=== PATIENT | male | born 1970 | race Caucasian/White ===

== ENCOUNTER 2020-03-11 16:08 | Inpatient (IN) | payer OTHER ==
[~2020-03-11] VITALS: Ht 180.3 cm; Wt 120.2 kg
--- NOTE | 2020-03-11 16:18 | NUR ---
BIBA RA 102 From Home "Chest pain/Started sweating/did NOT feel good" Given 162 AsA and 2sprays Nitro now pain 07/10. Patient a/ox4, breathing even and unlabored, no sob noted, attached to the monitoring engineer.
[2020-03-11] MEDS ORDERED: IV NS 0.9% 500 ML BAG IV ONE (16:30)
[2020-03-11] MEDS ORDERED: NITROGLYCERIN PACKET 1 GM PACKET TOP ONE (16:30)
[2020-03-11] MEDS ORDERED: NITROGLYCERIN PACKET 1 GM PACKET ONE (16:38)
[2020-03-11 16:39] LABS: BASOPHILS # (AUTO) 0.1 /CMM (0.0-0.2); BASOPHILS % (AUTO) 0.6 % (0.0-2.0); EOSINOPHILS % (AUTO) 2.4 % (0.0-6.0); HEMATOCRIT 50 % (39-51); HEMOGLOBIN 17.1 g/dL (13.5-17.5); LYMPHOCYTES % (AUTO) 27.9 % (20.0-44.0); MEAN CORPUSCULAR HGB CONC 34 g/dl (31.0-36.0); MEAN CORPUSCULAR VOLUME 91 fL (80-96); MONOCYTES # (AUTO) 0.8 /CMM (0.1-1.30); MONOCYTES % (AUTO) 7.1 % (2.0-12.0); NEUTROPHILS # (AUTO) 6.6 /CMM (1.8-8.9); PLATELET COUNT (AUTO) 245 /CMM (150-450); RED BLOOD CELL COUNT(AUTO) 5.55 MIL/uL (4.5-6.0); WHITE BLOOD COUNT (AUTO) 10.6 K/uL (4.3-11.0)
[2020-03-11 16:55] LABS: CALCIUM, SERUM 9.1 mg/dL (8.5-10.1); POTASSIUM 3.6 mmol/L (3.5-5.1)
--- NOTE | 2020-03-11 17:58 | NUR ---
NORM ROBERT SPOKE WITH AUTOMOTIVE BRAKE TECHNICIAN AND TOLD THAT WE WILL GIVE THEM 30 MINUTES TO TX
--- NOTE | 2020-03-11 18:08 | NUR ---
CALL BACK FROM CARE COORDINATION MANAGER PENELOPE WITH SELENA IRVIN TO TALK TO DR RODRÍGUEZ
--- NOTE | 2020-03-11 18:16 | NUR ---
REPORT GIVEN TO GUS ROBERT.
--- NOTE | 2020-03-11 18:20 | NUR ---
DR. LEWIS ACCEPTED.
[2020-03-11] MEDS ORDERED: IV NS 0.9% 250 ML BAG IV ONE (18:30)
[2020-03-11] MEDS ORDERED: IOHEXOL-350 100 ML VIAL IV ONE (18:44)
[2020-03-11] MEDS ORDERED: IV NS 0.9% 250 ML IV ONE (18:44)
[2020-03-11] MEDS ORDERED: CT SWABBABLE VALVE TRANS SET 1 EA INFUS.SET MC ONE (18:45)
--- NOTE | 2020-03-11 18:47 | NUR ---
[address] [facility]
--- NOTE | 2020-03-11 18:57 | NUR ---
TAKEN TO RADIOLOGY FOR CT.
--- NOTE | 2020-03-11 19:12 | NUR ---
PATIENT A/OX4, BREATHING EVEN AND UNLABORED, TRANSFERRED TO ROOM 202 VIA ACLS PROTOCOL. PATIENT IN STABLE CONDITION, ENDORSED TO DAMIÁN ROBERT.
[2020-03-11] MEDS ORDERED: ZOLPIDEM TARTRATE 5 MG TABLET PO PRN (19:30)
[2020-03-11] MEDS ORDERED: ACETAMINOPHEN 650 MG/20.3 ML UDC NG PRN (19:30)
[2020-03-11] MEDS ORDERED: HYDROCODONE/APAP 5/325MG TABLET PO PRN (19:30)
[2020-03-11] MEDS: PANTOPRAZOLE 40 MG TABLET.DR PO SCH (20:16)
--- NOTE | 2020-03-11 20:33 | NUR ---
TELE SECOND FLOOR/RN RECEIVED PATIENT AT AROUND 1900 FROM E. VIA [facility], PATIENT WAS AWAKE, ALERT, ORIENTED, COMFORTABLE, NO C/O PAIN, NO SIGNS OF DISTRESS NOTED, AFEBRILE, ADMISSION DONE PER PROTOCOL, REFUSED SKIN ASSESSMENT, PATIENT STATED HE HAS NO SKIN PROBLEMS, PLAN OF CARE DISCUSSED WITH THE PATIENT, VERBALIZED UNDERSTANDING AND IS IN AGREEMENT TO THE PLAN OF CARE, TAUGHT THE USE OF CALL LIGHT AND PLACED UT AT BEDSIDE WITHIN REACH, WILL MONITOR.
[2020-03-11 21:10] VITALS: BP 112/65
--- NOTE | 2020-03-11 22:21 | NUR ---
MS/TELE 2/RN PATIENT REPORTED TO HAVE VOMITED ONE TIME, OFFERED NAUSEA MEDICATION BUT PATIENT REFUSED. WILL CONTINUE TO MONITOR.
[2020-03-12] VITALS (7 sets, daily range): BP systolic 120–132; BP diastolic 72–82
--- NOTE | 2020-03-12 04:31 | NUR ---
MS2/TELE PATIENT C/O PAIN IN HIS ESOPHAGUS AND STATED THAT HE COULD NOT SLEEP WELL. MADE A CALL TO , , LEFT MESSAGE.
--- NOTE | 2020-03-12 04:43 | NUR ---
MS2/RN DR. LEWIS CALLED BACK WITH ORDERS RECEIVED.
[2020-03-12] MEDS ORDERED: MAG HYDROX/AL HYDROX/SIMETH 30 ML UDC PO PRN (05:00)
[2020-03-12] MEDS ORDERED: ONDANSETRON HCL/PF 4 MG/2 ML VIAL IV PRN (05:00)
--- NOTE | 2020-03-12 05:20 | NUR ---
MS2/RN PATIENT REPORTS VOMITING YELLOWISH COLOR VOMITUS, ZOFRAN 4 MG IVP WAS GIVEN ORDERED, WILL MONITOR.
--- NOTE | 2020-03-12 06:06 | NUR ---
MS2/RN PATIENT IS AWAKE AT THIS TIME, REPORTS NO NAUSEA/VOMITING, NO SIGNS OF DISTRESS NOTED, ON AND OFF SLEEP NOTED THE WHOLE SHIFT, ALL NEEDS ATTENDED AT THIS TIME, WILL CONTINUE TO MONITOR.
[2020-03-12 06:54] LABS: BASOPHILS % (AUTO) 0.2 % (0.0-2.0); HEMATOCRIT 49 % (39-51); HEMOGLOBIN 16.1 g/dL (13.5-17.5); LYMPHOCYTES # (AUTO) 1.5 /CMM (0.8-4.8); LYMPHOCYTES % (AUTO) 9.9 % (20.0-44.0); MEAN CORPUSCULAR HGB CONC 33 g/dl (31.0-36.0); MEAN CORPUSCULAR VOLUME 92 fL (80-96); MONOCYTES # (AUTO) 0.8 /CMM (0.1-1.30); NEUTROPHILS # (AUTO) 12.8 /CMM (1.8-8.9); NEUTROPHILS % (AUTO) 84.9 % (43.0-81.0); PLATELET COUNT (AUTO) 222 /CMM (150-450); RED BLOOD CELL COUNT(AUTO) 5.32 MIL/uL (4.5-6.0); WHITE BLOOD COUNT (AUTO) 15.1 K/uL (4.3-11.0)
--- NOTE | 2020-03-12 07:00 | NUR ---
BRIDGE REPAIR CREW PERSON OPENING NOTE RECEIVED PT AWAKE IN BED AT THIS TIME. AOX4. ABLE TO MAKE NEEDS KNOWN. PT ON RA AND SATURATING AT 97%., RESPIRATIONS ARE EVEN AND UNLABORED. NO SOB NOTED. NO C/O PAIN AT THIS TIME. NO S/S OF ANY ACUTE DISTRESS NOTED. LAC G#18 , INTACT, PATENT, FLUSHING WELL. FALL AND SAFETY PRECAUTION IN PLACE AND MAINTAINED AT ALL TIMES. BED IN LOWEST LOCKED POSITION, HOB ELEVATED, RAILS UP X 2, CALL LIGHT WITHIN REACH. WILL CONTINUE TO MONITOR
[2020-03-12 07:50] LABS: ALANINE AMINOTRANSFERASE 54 U/L (12-78); ALBUMIN 3.7 g/dL (3.4-5.0); ALKALINE PHOSPHATASE 62 U/L (46-116); ASPARTATE AMINOTRANSFERASE 139 U/L (15-37); BILIRUBIN,TOTAL 0.4 mg/dL (0.2-1.0); CALCIUM, SERUM 8.7 mg/dL (8.5-10.1); CARBON DIOXIDE 25 mmol/L (21-32); CHLORIDE 104 mmol/L (98-107); CREATININE 0.9 mg/dL (0.6-1.3); GLUCOSE 126 mg/dL (74-106); POTASSIUM 4.4 mmol/L (3.5-5.1); SODIUM SERUM 141 mmol/L (136-145); TOTAL PROTEIN, SERUM 7.5 g/dL (6.4-8.2); UREA NITROGEN, BLOOD 6 mg/dL (7-18)
[2020-03-12 08:09] LABS: CHOLESTEROL 179 mg/dL (<200); FERRITIN 217 ng/mL (8-388); HDL CHOLESTEROL 45 mg/dL (40-60); LDL 128 mg/dL (0-99); THYROID STIMULATING HORMONE 0.805 uIU/mL (0.358-3.74); TRIGLYCERIDES 69 mg/dL (30-150)
--- NOTE | 2020-03-12 08:10 | NUR ---
PT'S TROPONIN 8.298 LAB REPORT CALLED IN TO [facility]ILY AT THIS TIME BY ALEE METAL STORAGE WORKER. REPORT READ BACK. DR LEA AND DR LEWIS MADE AWARE. RECEIVED ORDERS FROM DR LEA FOR STAT ECHOCARDIOGRAM AND DECADRON 6MG IV DAILY STAT. ORDERS CARRIED OUT. WILL CONTINUE TO MONITOR
[2020-03-12] MEDS: PANTOPRAZOLE 40 MG TABLET.DR PO SCH (08:13)
[2020-03-12] MEDS: ASPIRIN 81 MG TAB.CHEW PO SCH (09:05)
[2020-03-12] MEDS: ATORVASTATIN 10 MG TABLET PO SCH (09:05)
[2020-03-12] MEDS: CARVEDILOL 6.25 MG TABLET PO SCH ×2 (09:06→21:36)
[2020-03-12] MEDS: ENOXAPARIN SODIUM 100 MG/ML DISP.SYRIN SQ SCH ×2 (09:07→21:37)
[2020-03-12 09:16] LABS: C-REACTIVE PROTEIN < 0.2 mg/dL (0.0-0.9)
[2020-03-12] MEDS ORDERED: DEXAMETHASONE SOD PHOSPHATE 10 MG/ML VIAL IV STA (09:39)
--- NOTE | 2020-03-12 10:00 | NUR ---
PT C/O OF VOMITING YELLOW LIQUID EMESIS. RECEIVED ORDERS FROM DR LEA FOR DECADRON 6MG IV DAILY STAT. ORDERS READ BACK AND CARRIED OUT. WILL CONTINUE TO MONITOR
--- NOTE | 2020-03-12 13:01 | NUR ---
PT'S TROPONIN 8.298. DR LEWIS MADE AWARE. PER DR LEWIS REQUEST, DR HOOVER WAS MADE AWARE. AWAITING ORDERS, WILL CONTINUE TO MONITOR.
--- NOTE | 2020-03-12 18:57 | NUR ---
PT MONITOR READING SR 83 WITH BBB. PT ASSESSED, VS WNL, SPO2 ON RA AT 95% AND 100% ON O2 2LPM VIA NC. PT CHEST SHAVED, LEADS REPLACED, TELEPHONE EXCHANGE TO PLACED TO DR LEWIS TO MAKE AWARE, VIA XI AT DR LEWIS'S OFFICE, AWAITING ORDERS. WILL CONTINUE TO MONITOR
--- NOTE | 2020-03-12 19:11 | NUR ---
PT MONITOR READING SR 83 WITH BBB. PT ASSESSED, VS WNL, SPO2 ON RA AT 95% AND 100% ON O2 2LPM VIA NC. STAT EKG ORDERED, DR LEA MADE AWARE AND PER DR LEA REQUEST, DR HOOVER WAS MADE AWARE. NO NEW ORDERS AT THIS TIME. WILL CONTINUE TO MONITOR AND ENDORSE TO SERVICE DESK SPECIALIST NURSE FOR ALEJANDRO
--- NOTE | 2020-03-12 19:25 | NUR ---
BATCH FREEZER CLOSING NOTES PT AWAKE IN BED AT THIS TIME. PT REMAINED STABLE THROUGHOUT SHIFT. PT KEPT CLEAN AND DRY. ALL CARE, NEEDS, MEDICATION AND TREATMENT ADMINISTERED ANTICIPATED PER ORDER. ASPIRATION AND SAFETY PRECAUTION IN PLACE AND MAINTAINED AT ALL TIMES. BED IN LOWEST LOCKED POSITION, HOB ELEVATED, RAILS UP X 2, CALL LIGHT WITHIN REACH. WILL ENDORSE TO PARTNER CCO NURSE FOR ALEJANDRO
--- NOTE | 2020-03-12 19:30 | NUR ---
MEN'S LOCKER ROOM ATTENDANT RECEIVE PT IN BED A/O X 4 SR 62 WITH BB. AWAITING EKG. CARDIAC MONITORING, NOT IN DISTRESS, SAFETY MEASURES AT ALL TIMES. WILL CONT TO MONITOR
--- NOTE | 2020-03-12 23:20 | NUR ---
LAB CALLED FOR CRITICAL RESULT TROPONIN 17.597 PAGED Jacinto SECURITIES SALES ASSOCIATE
--- NOTE | 2020-03-12 23:20 | NUR ---
PAGED HOSPITALIST FOR CRITICAL RESULT TROPONIN
--- NOTE | 2020-03-12 23:23 | NUR ---
PT SR 70'S HR WITH BBB
--- NOTE | 2020-03-12 23:25 | NUR ---
SPOKE TO DR. DECKER AWARE RECENT TROPONIN 17.597 NO NEW ORDERS NOTED
--- NOTE | 2020-03-12 23:33 | NUR ---
PAGED AND SPOKE TO RN PACU DR. HOOVER RELAYED RECENT TROPONIN 17.[address] " OK NO NEW ORDERS" NOTED. PT STABLE AT THIS TIME NO COMPLAIN OF CHEST PAIN
[2020-03-13] VITALS (8 sets, daily range): BP systolic 108–131; BP diastolic 60–80
--- NOTE | 2020-03-13 06:05 | NUR ---
ANTHONY ROBERT PT SLEPT WELL, NO COMPLAIN OF CHEST PAIN. DENIES PAIN, PT MONITORED ACCORDINGLY, SR 72 HR WITH BBB ON CARDIAC MONITORING, MAINTAINS CONTACT, DROPLET ISOLATION. NEEDS ATTENDED AND ANTICIPATED, KEPT CLEAN, DRY AND COMFORTABLE. SAFETY MEASURES AT ALL TIMES. WILL ENDORSE Addendum: 03/13/20 at 0607 by KIRAN LAU RN PT TOLERATING ROOM AIR 96%
--- NOTE | 2020-03-13 08:00 | NUR ---
RN NOTES RECEIVED PATIENT IN THE BED TELE SR-92, , PATIENT A/O X4, REFUSED PAIN, V/S WNL, NO ACUTE RESPIRATORY DISTRESS. ADMINISTERED SCHEDULED MEDICATION. IV ACCESS ON LEFT AC INTACT. PATIENT AMBULATORY SELF CARE. CALL LIGHT WITHIN TO REACH. WILL CONTINUED MONITORING.
[2020-03-13 08:13] LABS: ALBUMIN 3.6 g/dL (3.4-5.0); BILIRUBIN,TOTAL 0.6 mg/dL (0.2-1.0); CALCIUM, SERUM 8.9 mg/dL (8.5-10.1); MAGNESIUM 2.2 mg/dL (1.8-2.4); PHOSPHORUS 3.1 mg/dL (2.5-4.9); POTASSIUM 3.8 mmol/L (3.5-5.1); TOTAL PROTEIN, SERUM 7.3 g/dL (6.4-8.2)
[2020-03-13 08:20] LABS: BASOPHILS % (AUTO) 0.1 % (0.0-2.0); EOSINOPHILS % (AUTO) 0.2 % (0.0-6.0); HEMATOCRIT 48 % (39-51); HEMOGLOBIN 15.9 g/dL (13.5-17.5); LYMPHOCYTES % (AUTO) 18.3 % (20.0-44.0); MEAN CORPUSCULAR HGB CONC 33 g/dl (31.0-36.0); MEAN CORPUSCULAR VOLUME 90 fL (80-96); MONOCYTES # (AUTO) 1.7 /CMM (0.1-1.30); NEUTROPHILS # (AUTO) 11.8 /CMM (1.8-8.9); NEUTROPHILS % (AUTO) 71.4 % (43.0-81.0); PLATELET COUNT (AUTO) 228 /CMM (150-450); RED BLOOD CELL COUNT(AUTO) 5.37 MIL/uL (4.5-6.0); WHITE BLOOD COUNT (AUTO) 16.5 K/uL (4.3-11.0)
[2020-03-13] MEDS: PANTOPRAZOLE 40 MG TABLET.DR PO SCH (09:34)
[2020-03-13] MEDS: ASPIRIN 81 MG TAB.CHEW PO SCH (09:34)
[2020-03-13] MEDS: DEXAMETHASONE SOD PHOSPHATE 10 MG/ML VIAL IV SCH (09:34)
[2020-03-13] MEDS: CARVEDILOL 6.25 MG TABLET PO SCH ×2 (09:35→21:26)
[2020-03-13] MEDS: ENOXAPARIN SODIUM 100 MG/ML DISP.SYRIN SQ SCH ×2 (09:35→21:17)
[2020-03-13] MEDS: ATORVASTATIN 10 MG TABLET PO SCH (09:36)
--- NOTE | 2020-03-13 10:06 | NUR ---
rn notes seen patient by hospitalist Dr So, new orders is labs for tomorrow, patient stable on room air, refused pain at this time, a/o x4, iv access on left ac area intact. patient resting, call light within to reach. will continued monitoring.
--- NOTE | 2020-03-13 12:14 | NUR ---
RN NOTES NOTIFIED TROPONIN LEVEL 19.241 TO THE FINISHER MERCHANT PRODUCTS Dr BARBOUR AND RESPOND WAS NO ORDERS, WILL CONTINUED MONITORING, PATIENT REFUSED PAIN, TELE MONITOR SHOWING SR. CONTINUED MONITORING.
[2020-03-13 12:20] LABS: HIV SCRN 4G wRFX Non Reactive (Non Reactive)
--- NOTE | 2020-03-13 18:15 | NUR ---
RN NOTES PATIENT STABLE NO ACUTE RESPIRATORY DISTRESS, V/S WNL, REFUSED PAIN. PATIENT SELF CARE. ENDORSED ONCOMING NURSE FOLLOW PLAN OF CARE.
--- NOTE | 2020-03-13 19:40 | NUR ---
RN NOTES RECEIVED PATIENT IN THE BED TELE SR-60s -70s WITH BBB, PATIENT ALERT ORIENTED X4, DENIES PAIN AND OR DISCOMFORT, NO SIGNS OF ACUTE RESPIRATORY OR CARDIAC DISTRESS. IV ACCESS ON LEFT AC INTACT AND PATIENT, AMBULATORY SELF CARE. CALL LIGHT WITHIN REACH. ALL NEEDS ANTICIPATED, WILL CONTINUE TO MONITOR ACCORDINGLY.
[2020-03-14] VITALS (7 sets, daily range): BP systolic 106–149; BP diastolic 60–83
--- NOTE | 2020-03-14 06:14 | NUR ---
RN NOTES ALL NEEDS ATTENDED AND MET, ABLE TO REST AND SLEPT AT INTERVALS, PATIENT IN THE BED AT THIS TIME, TELE SR-60s, PATIENT A/O X4, NO COMPLAINTS OF PAIN THROUGHOUT THE SHIFT, VITAL SIGNS WNL, NO ACUTE CARDIAC OR RESPIRATORY DISTRESS NOTED. ADMINISTERED SCHEDULED MEDICATION. IV ACCESS ON LEFT AC INTACT. PATIENT AMBULATORY SELF CARE. CALL LIGHT WITHIN TO REACH. WILL ENDORSE TO AM NURSE FOR CONTINUITY OF CARE.
[2020-03-14] MEDS: PANTOPRAZOLE 40 MG TABLET.DR PO SCH (07:12)
[2020-03-14 07:17] LABS: BASOPHILS # (AUTO) 0.1 /CMM (0.0-0.2); BASOPHILS % (AUTO) 0.5 % (0.0-2.0); EOSINOPHILS % (AUTO) 0.2 % (0.0-6.0); HEMATOCRIT 46 % (39-51); HEMOGLOBIN 15.3 g/dL (13.5-17.5); LYMPHOCYTES % (AUTO) 20.9 % (20.0-44.0); MEAN CORPUSCULAR HGB CONC 34 g/dl (31.0-36.0); MEAN CORPUSCULAR VOLUME 90 fL (80-96); MONOCYTES # (AUTO) 1.5 /CMM (0.1-1.30); MONOCYTES % (AUTO) 10.6 % (2.0-12.0); NEUTROPHILS # (AUTO) 9.7 /CMM (1.8-8.9); NEUTROPHILS % (AUTO) 67.8 % (43.0-81.0); PLATELET COUNT (AUTO) 203 /CMM (150-450); RED BLOOD CELL COUNT(AUTO) 5.09 MIL/uL (4.5-6.0); WHITE BLOOD COUNT (AUTO) 14.3 K/uL (4.3-11.0)
--- NOTE | 2020-03-14 07:20 | NUR ---
TOWNSHIP CLERK NOTES RECEIVED PATIENT IN BED, ASLEEP. AROUSABLE TO VERBAL AND TACTILE STIMULI. ALERT AND ORIENTED X4. HOB ELEVATED. ON O2 AT 2 L/MIN VIA NC CORRINE WELL. ON TELE MONITORING SR: 76 WITH BBB. PATIENT RESTING COMFORTABLY IN BED. DENIES ANY C/O LIGHTHEADEDNESS, ZAMBRANO, N&V NOR SOB. BED IN LOWEST POSITION ,LOCKED. BED SIDERAILS UP X2. CALL LIGHT WITHIN REACH.
[2020-03-14 08:34] LABS: ALBUMIN 3.3 g/dL (3.4-5.0); BILIRUBIN,TOTAL 0.4 mg/dL (0.2-1.0); CALCIUM, SERUM 8.5 mg/dL (8.5-10.1); CREATININE 0.8 mg/dL (0.6-1.3); MAGNESIUM 2.4 mg/dL (1.8-2.4); PHOSPHORUS 3.7 mg/dL (2.5-4.9); POTASSIUM 4.1 mmol/L (3.5-5.1); TOTAL PROTEIN, SERUM 7.1 g/dL (6.4-8.2)
--- NOTE | 2020-03-14 08:38 | NUR ---
TELE NOTES RECEIVED TROPONIN LEVEL OF 8.[address] HOOVER TRENDING DOWN WITH N.O. FOR DC LOVENOX AND DVT PPX.
[2020-03-14] MEDS: ASPIRIN 81 MG TAB.CHEW PO SCH (08:47)
[2020-03-14] MEDS: DEXAMETHASONE SOD PHOSPHATE 10 MG/ML VIAL IV SCH (08:48)
[2020-03-14] MEDS: ATORVASTATIN 10 MG TABLET PO SCH (08:48)
[2020-03-14] MEDS: CARVEDILOL 6.25 MG TABLET PO SCH ×2 (08:48→20:14)
[2020-03-14] MEDS ORDERED: ENOXAPARIN SODIUM 40 MG/0.4 ML DISP.SYRIN SQ SCH (09:46)
--- NOTE | 2020-03-14 09:56 | NUR ---
MACHINE WIPER NOTES PATIENT SEEN BY DR. LEWIS
[2020-03-14] MEDS ORDERED: IV NS 0.9% 250 ML IV ONE (10:29)
[2020-03-14] MEDS ORDERED: IOHEXOL-350 100 ML VIAL IV ONE (10:29)
[2020-03-14] MEDS ORDERED: NITROGLYCERIN 0.4 MG/TAB BOTTLE SL ONE (10:30)
--- NOTE | 2020-03-14 10:32 | NUR ---
CIRCUS SUPERVISOR NOTES PATIENT OFF UNIT, WENT TO [employer] CLINICAL PROGRAMMER. LEFT IN STABLE CONDITION.
[2020-03-14] MEDS ORDERED: NITROGLYCERIN 0.4 MG/TAB BOTTLE ONE (10:41)
[2020-03-14] MEDS ORDERED: METOPROLOL TARTRATE INJ 5 MG/5 ML AMPUL ONE (10:42)
[2020-03-14] MEDS: METOPROLOL TARTRATE INJ 5 MG/5 ML AMPUL IVP PRN ×3 (10:43→10:55)
--- NOTE | 2020-03-14 11:04 | NUR ---
RN NOTES: CTA completed,patient tolerated well. Transferred back to patient room.
--- NOTE | 2020-03-14 11:26 | NUR ---
CCO & PRESIDENT NOTES PATIENT RETURNED TO UNIT, ON TELE MONITORING SR: 69. DENIES ANY C/O PAIN NOR DISCOMFORT. ON ROOM AIR. NO SOB.
--- NOTE | 2020-03-14 18:53 | NUR ---
LOCAL COMPANY TRUCK DRIVER NOTES PATIENT RESTING COMFORTABLY IN BED WATCHING TV. HOB ELEVATED. NO SOB/COUGH OBSERVED DURING THE SHIFT. ON ROOM AIR WITH SPO2 OF 94-97 %. AMBULATES IN ROOM WITH STEADY GAIT. LEFT AC # 18 SL INTACT AND PATENT. BED IN LOWEST POSITION, LOCKED. BED SIDERAILS UP X2. CALL LIGHT WITHIN REACH. IN NO APPARENT DISTRESS.
--- NOTE | 2020-03-14 19:45 | NUR ---
ORGANISATION AND METHODS ANALYST NOTE: PATIENT RESTING IN BED, NO ACUTE DISTRESS NOTED. BREATHING EVEN AND UNLABORED, NO SOB NOTED, NO COUGH AT THIS TIME. IV TO LAC IN PLACE. AFEBRILE AT THIS TIME. ISOLATION PRECAUTIONS OBSERVED. BED LOCKED AND IN LOWEST POSITION, CALL LIGHT IN REACH. WILL CONTINUE TO MONITOR.
[2020-03-15] VITALS: BP 96/55
--- NOTE | 2020-03-15 01:45 | NUR ---
ELECTRICAL AND INSTRUMENTATION MECHANIC NOTE: PATIENT SLEEPING IN BED, NO ACUTE DISTRESS NOTED. BREATHING EVEN AND UNLABORED, NO SOB NOTED, NO COUGH AT THIS TIME. IV TO LAC IN PLACE. AFEBRILE AT THIS TIME. ISOLATION PRECAUTIONS OBSERVED. BED LOCKED AND IN LOWEST POSITION, CALL LIGHT IN REACH. WILL CONTINUE TO MONITOR.
[2020-03-15 04:30] VITALS: BP 99/50
--- NOTE | 2020-03-15 06:30 | NUR ---
NUT TAPPER NOTE: PATIENT RESTING IN BED, NO ACUTE DISTRESS NOTED. BREATHING EVEN AND UNLABORED, NO SOB NOTED, NO COUGH AT THIS TIME. IV TO LAC IN PLACE. AFEBRILE AT THIS TIME. ISOLATION PRECAUTIONS OBSERVED. BED LOCKED AND IN LOWEST POSITION, CALL LIGHT IN REACH. WILL ENDORSE TO DAY NURSE TO CONTINUE WITH PLAN OF CARE.
[2020-03-15] MEDS: PANTOPRAZOLE 40 MG TABLET.DR PO SCH (07:12)
[2020-03-15 07:30] VITALS: BP 111/64
--- NOTE | 2020-03-15 07:30 | NUR ---
Tele/RN - Assessment Patient is awake, A/O x 4, no complaints overnight, afebrile, no c/o chest pain, denies SOB, comfortable on room air, SpO2 95-96%, tele shows SR with BBB 60s. Saline lock on the LAC is patent, intact, with no signs of infiltration. Skin is intact. Patient ambulates with steady gait. Contact and droplet precautions maintained for positive Covid-19. All needs attended. Will continue with current medical management.
[2020-03-15] MEDS: DEXAMETHASONE SOD PHOSPHATE 10 MG/ML VIAL IV SCH (08:03)
[2020-03-15] MEDS: ASPIRIN 81 MG TAB.CHEW PO SCH (08:03)
[2020-03-15] MEDS: CARVEDILOL 6.25 MG TABLET PO SCH (08:03)
[2020-03-15] MEDS: ATORVASTATIN 10 MG TABLET PO SCH (08:03)
--- NOTE | 2020-03-15 09:30 | NUR ---
Tele/RN - Notes Seen by Dr. Cai with no new orders at this time, patient is planned for discharge home tomorrow.
[2020-03-15 12:00] VITALS: BP 125/68
[2020-03-15] MEDS ORDERED: ATOR10TA PO (13:12)
[2020-03-15] MEDS ORDERED: ASPI-1169 PO (13:12)
[2020-03-15] MEDS ORDERED: CARV6.252 PO (13:12)
--- NOTE | 2020-03-15 14:20 | NUR ---
Tele/RN - Discharge Patient is alert and oriented, discharged home in stable condition, remain afebrile, denies chest pain, not in any form of distress, stable on room air, SpO2 95-96%, ambulatory with steady gait. Reviewed discharge instructions with patient and he verbalized full understanding of all teachings including medications, Covid home isolation instructions and follow-up care with PCP and naval [employer] coxswain in two weeks. Written prescription was provided. Patient was advised to seek immediate medical attention for worsening symptoms, chest pain, shortness of breath, palpitations, abdominal pain/distention, intractable nausea and vomiting, diarrhea, weakness, loss of consciousness, neurological deficit, or any other emergent concerns. All belongings with patient and he deny any missing items. Saline lock removed on the LAC with catheter tip intact, no redness, no swelling noted at the site. Discharge paperwork signed and copies were given per protocol. Accompanied to the lobby and transported by private car. Patient left the unit at 14:10.
== END 2020-03-15 14:10 | disposition home or self-care (01) | DRG 280 ==
LOC: ER 16:16 → TELE 18:26 → TELE2 18:55
PROVIDERS: ADMIT Internal Medicine; ATTEND Internal Medicine
DX: I21.4 Non-ST elevation (NSTEMI) myocardial infarction (principal); U07.1 COVID-19; I30.1 Infective pericarditis; I51.4 Myocarditis, unspecified; F32.9 Major depressive disorder, single episode, unspecified
CPT/HCPCS: 36415; 71045-TC; 75574; 80048-TC; 80053-TC; 80061-TC; 80074; 82728-TC; 83615-TC; 83735-TC; 83880; 84100-TC; 84443-TC; 84484-TC; 85025-TC; 85378-TC; 85730-TC; 86140-TC; 86706; 87081-TC; 87536; 93308-TC; G0378; J1100; J1650; J2405; J3490; J7040; J7050; Q9967